=== PATIENT | female | born 1960 | race Caucasian/White ===

== ENCOUNTER → 2017-01-27 | Outpatient (CLI) | payer OTHER ==
[2014-06-08 19:23] VITALS: BP 146/63
[~2017-01-27] MED LIST: ARIP10TA13 PO; CARI350T14 PO; CARV25TA2 PO; CITA10TA4 PO; CLON0.5T3 PO; DIGO0.12 PO; ESCI20TA PO; EZET1TAB5 PO; FURO40TA4 PO; FURO80TA3 PO; GABA-585 PO; GLIM1TAB2 PO; GUAN4TAB2 PO; LEVO50TA5 PO; LISI-334 PO; MELO-156 PO; METF-620 PO; OXYC-323 PO; PANT40TA5 PO; POTA20TA82 PO; RANI150C PO; TRAZ100T12 PO
--- NOTE | 2017-01-27 12:33 | RAD ---
PROCEDURE MRI of the lumbar spine without contrast 01/27/2017 HISTORY Chronic low back pain which radiates down both legs. TECHNIQUE Unenhanced T1 weighted, T2 weighted and inversion recovery sagittal and T1 weighted and T2 weighted axial images of the lumbar spine were obtained. FINDINGS Very mild S-shaped curvature of the thoracolumbar spine is seen. Degenerative signal changes are seen involving all the discs of the lumbar spine. Degenerative signal changes are seen within the marrow surrounding these discs. The conus medullaris is within normal limits in position and signal characteristics. At the L1-2, L2-3 and L3-4 disc spaces there are minimal to mild generalized disc bulges. Degenerative changes are seen involving the facet joints bilaterally. There is mild ligamentum flavum hypertrophy bilaterally. These findings when combined do not result in significant central spinal canal or neural foraminal stenosis. At the L4-5 disc space there is mild to moderate generalized disc bulge. This is eccentric to the right. Degenerative changes are seen involving facet joints bilaterally. There is moderate ligamentum flavum hypertrophy bilaterally. There is small to moderate-sized bilateral facet joint effusions. Superimposed on the disc bulge is a focal central disc protrusion. This measures 3 millimeters in AP diameter. These findings when combined result in mild to moderate central spinal canal stenosis. Mild right neural foraminal stenosis is seen. The left neural foramina is patent. At the L5-S1 disc space there is a mild to moderate generalized disc bulge. This is eccentric to the left. Degenerative changes are seen involving the facet joints bilaterally. There are small moderate sized facet joint effusions. These findings when combined do not result in significant central spinal canal stenosis. Mild left neural foraminal stenosis is seen. The right neural foramina is patent. IMPRESSION The changes of degenerative disc disease are seen involving the lumbar spine. These findings result in mild to moderate central spinal canal stenosis at L4-5. Mild right neural foraminal stenosis is seen at L4-5. Mild left neural foraminal stenosis is seen at L5-S1. Electronically signed by: Poncho Barnett MD (January 27, 2017 12:32:19)
== END | disposition home or self-care (01) ==
LOC: MRI 09:50
PROVIDERS: ATTEND Family Medicine
DX: M51.36 Other intervertebral disc degeneration, lumbar region (principal); M48.07 Spinal stenosis, lumbosacral region
CPT/HCPCS: 72148